=== PATIENT | male | born 1950 | race Caucasian/White ===

== ENCOUNTER → 2021-12-11 07:07 | Outpatient (REF) | payer MEDICARE, SELFPAY | LOC: ANHLAB 07:07 | PROVIDERS: Visit Provider Surgery Plastic and Reconstructive Surgery | DX: L72.0 Epidermal cyst (principal) | CPT/HCPCS: 88304 ==

== ENCOUNTER 2022-09-23 09:00 | Outpatient (NON) | payer MEDICARE, SELFPAY | END 2022-09-23 09:01 | disposition home or self-care (01) | LOC: ANHLAB 09-24 15:52 | PROVIDERS: Visit Provider Nurse Practitioner | DX: C44.612 Basal cell carcinoma of skin of right upper limb, including shoulder (principal) | CPT/HCPCS: 88305 ==